=== PATIENT | female | born 1980 | race Caucasian/White ===

== ENCOUNTER 2017-07-02 15:07 | Emergency (ER) | payer OTHER ==
[2017-07-02 16:00] VITALS: BP 129/84; PULSE 99; RESP 18; TEMP 97.8; O2SAT 100
--- NOTE | 2017-07-02 16:11 | ED PDOC ---
HPI: CCC, URI, Sore Throat Time Seen by Provider: 07/02/17 16:01 Chief Complaint (Nursing): Flu-like Symptoms Chief Complaint (Provider): Flu-like Symptoms History Per: Patient History/Exam Limitations: no limitations Onset/Duration Of Symptoms: Hrs (< 48 hours) Current Symptoms Are (Timing): Still Present Sick Contacts (Context): Family Member(s) (son) Additional Complaint(s): 36 year old female presents to the emergency department complaining of cough, sore throat, fever, and chills, onset less than 48 hours ago. Also reports associated body aches. No sick contacts or recent travel. Has been taking Tylenol for fever control. Patient denies any shortness of breath, chest pain, nausea, or vomiting. PMD: None Past Medical History Reviewed: Historical Data, Nursing Documentation, Vital Signs Vital Signs: Last Vital Signs Temp 97.8 F 07/02/17 15:56 Pulse 99 H 07/02/17 15:56 Resp 18 07/02/17 15:56 BP 129/84 07/02/17 15:56 Pulse Ox 100 07/02/17 16:14 - Medical History PMH: No Chronic Diseases - Family History Family History: States: Unknown Family Hx - Social History Current smoker - smoking cessation education provided: No Drugs: Denies - Home Medications Home Medications: Ambulatory Orders Medication Instructions Recorded Benzonatate [Tessalon Perle] 100 mg PO Q8 PRN #14 capsule 07/02/17 Fluticasone Propionate [Flonase] 2 spr NS DAILY PRN #1 bottle 07/02/17 Oseltamivir Phosphate [Tamiflu] 75 mg PO BID #10 capsule 07/02/17 - Allergies Allergies/Adverse Reactions: Allergies Allergy/AdvReac Type Severity Reaction Status Date / Time No Known Allergies Allergy Verified 07/02/17 15:56 Review of Systems ROS Statement: Except As Marked, All Systems Reviewed And Found Negative Constitutional: Positive for: Fever, Chills, Other (Body aches) ENT: Positive for: Nose Congestion, Throat Pain Cardiovascular: Negative for: Chest Pain Respiratory: Positive for: Cough. Negative for: Shortness of Breath Gastrointestinal: Negative for: Nausea, Vomiting, Diarrhea Physical Exam - Reviewed Nursing Documentation Reviewed: Yes Vital Signs Reviewed: Yes - Physical Exam Appears: Positive for: Non-toxic, No Acute Distress Head Exam: Positive for: ATRAUMATIC, NORMOCEPHALIC Skin: Positive for: Normal Color, Warm, Dry Eye Exam: Positive for: EOMI, Normal appearance, PERRL ENT: Positive for: Normal ENT Inspection, TM Is/Are (normal) Cardiovascular/Chest: Positive for: Regular Rate, Rhythm. Negative for: Murmur Respiratory: Positive for: Normal Breath Sounds. Negative for: Respiratory Distress Neurologic/Psych: Positive for: Alert, Oriented - ECG O2 Sat by Pulse Oximetry: 100 (RA) Pulse Ox Interpretation: Normal Medical Decision Making Medical Decision Making: Initial Impression: Flu-like symptoms Time: 16:09 Initial Plan: Patient is medically stable. Will d/c with Rx for Tamiflu, Flonase, and Tessalon Perles. Counseling was provided and all questions were answered regarding diagnosis and need for follow up with PMD. There is agreement to discharge plan. Return if symptoms persist or worsen. Scribe Attestation: Documented by Darcie Claudio, acting as a scribe for Rivera Palacio PA-C Provider Scribe Attestation: All medical record entries made by the Scribe were at my direction and personally dictated by me. I have reviewed the chart and agree that the record accurately reflects my personal performance of the history, physical exam, medical decision making, and the department course for this patient. I have also personally directed, reviewed, and agree with the discharge instructions and disposition. Disposition - Clinical Impression Clinical Impression: Influenza-like symptoms - Patient ED Disposition Is Patient to be Admitted: No Counseled Patient/Family Regarding: Diagnosis, Need For Followup, Rx Given - Disposition Disposition: Routine/Home Disposition Time: 16:12 Condition: STABLE Prescriptions: Benzonatate [Tessalon Perle] 100 mg PO Q8 PRN #14 capsule PRN Reason: Cough Fluticasone Propionate [Flonase] 2 spr NS DAILY PRN #1 bottle PRN Reason: Allergy Symptoms Oseltamivir Phosphate [Tamiflu] 75 mg PO BID #10 capsule Instructions: Influenza (ED) Forms: [facility] ([place]), [facility] ED School/Work Excuse Print Language: SWEDISH - POA Present On Arrival: None
== END 2017-07-02 16:47 | disposition home or self-care (01) ==
LOC: H.ER 15:07
DX: J11.1 Influenza due to unidentified influenza virus with other respiratory manifestations (principal)